=== PATIENT | female | born 2005 | race Caucasian/White ===

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

== ENCOUNTER 2024-06-27 17:54 | Emergency (ER) | payer BC, SELFPAY ==
--- OUTSIDE RECORDS SUMMARY | 2024-06-27 17:56 | XMS_ITS | Encounter Summary ---
Author Organization [facility] Address [address] [facility] [place] [address] Phone Care Team Providers Care Privacy Officer Name Role Phone Unavailable Primary Care Provider Unavailabl e Encounter Details Date Type Department Care Team (Late st Contact Info) Description 11/14/2023 Documentation [facility] Outpatient [address] [place] [phone] Candis Barfiled PA-C [address] [place] [address] Social History Tobacco Use Types Packs/Day Years Used Date Smoking Tobacco: Never Assessed Comments Unknown Sex and Gender Information Value Date Recorded Sex Assigned at Female 11/10/2023 11:33 AM EDT Legal Sex Female 8:53 AM EDT Gender Identity Not on file Sexual Orientation Not on file documented as of this encounter Plan of Treatment Not on file documented as of this encounter Visit Diagnoses Not on filedocumented in this encounter
--- OUTSIDE RECORDS SUMMARY | 2024-06-27 17:57 | XMS_ITS | Patient Health Record ---
Author Organization [facility] Address [address] [facility] [address] [place] [address] Care Team Providers Care Power Line Installer Name Role Phone Constanza Waters Unavailable [phone] Allergies No Known Allergies Reason For Referral No Information Medications Medication SIG (Take, Route, Frequency, Duration) Notes Start Date End Date Status Lo Loestrin Fe 1 MG-10 MCG / 10 MCG TAKE 1 TABLET BY MOUTH DAILY for 28 Active DULoxetine HCl 30 MG TAKE 1 CAPSULE BY M OUTH EVERY DAY Oral Once a day for 30 days Active Social History Tobacco Use: Social History Observation Description Date Details (start date - stop date) Never Smoker NA - NA Tobacco Use/Smoking Question Answer Notes Are you a nonsmoker Alcohol Screen Question Answer Notes Did you have a drink containing alcohol in the p ast year? No Points 0 Interpretation Negative Problems Problem Type SNOMED Code ICD Code Onset Dates Problem Status W/U Status Risk Notes Problem Chronic fatigue syndrome (43810593) Chronic fatigue (R53.82) Active confirmed Problem [id number] Menorrhagia with regular cycle (N92.0) Active confirmed Plan Of Treatment No Information Insurance Providers Payer Name Payer Address Payer Phone Subscriber Number Group Number Insured Name Patient Relationship to Insured Coverage Start Date Coverage End Date xx_Inde pendenc e Out of State [address] [place] [id number] Callie Wise Self - patient is the insured 2018 Medical (General) History Medical History History ICD Code depression concussion
--- OUTSIDE RECORDS SUMMARY | 2024-06-27 17:57 | XMS_ITS | Encounter Summary ---
Author Organization [facility] Address [address] [facility] [place] [address] Phone Care Team Providers Care College Archivist Name Role Phone Unavailable Primary Care Provider Unavailabl e Encounter Details Date Type Department Care Team (Late st Contact Info) Description 08/13/2023 Documentation [facility] Outpatient [address] [place] [phone] Candis Barfield PA-C [address] [place] [address] [address] Social History Tobacco Use Types Packs/Day Years [...]
--- OUTSIDE RECORDS SUMMARY | 2024-06-27 17:57 | XMS_ITS | Clinical Summary ---
Author Organization [facility] Address [address] [place] [address] Phone Care Team Providers Care Yard Supervisor Name Role Phone Unavailable Primary Care Provider Unavailabl e Allergies Active Allergy Reactions Criticality Noted Date Comments Lactose - Food Allergy Abdominal Pain 0 diarrhea Pear - Food Allergy Other (See Comments) 2023 Medications Lo Loestrin Fe 1 MG-10 MCG / 10 MCG TABS Take 1 tablet by mouth daily 01/30/2022 Active amoxicillin-cla vulanate (AUGMENTIN) 875-125 mg per tablet take 1 tablet by mouth twice daily for 10 days 12/03/2023 Active benzonatate (TESSALON) 200 MG capsule TAKE 1 CAPSULE BY MOUTH 2 TO 3 TIMES PER DAY NEEDED FOR COUGH 12/02/2023 Active amoxicillin (AMOXIL) 500 mg capsule Take 1 capsule by mouth 2 (two) times a day 02/27/2024 Active DULoxetine HCl 40 MG CPEPIndications :Generalized anxiety disorder,Major depressive disorder, recurrent episode, moderate (HCC) Take 1 capsule (40 mg total) by mouth daily 90 capsule 1 03/02/2024 5 Active Active Problems Problem Noted Date Diagnosed Date Chronic fatigue syndrome 02/24/2024 Major depressive disorder, recurrent episode, mo derate 03/01/2022 Assessment & Plan (03/02/2024 2:42 PM EST): Orders: DULoxetine HCl 40 MG CPEP; Take 1 capsule (40 mg total) by mouth daily Autism 03/01/2022 Assessment & Plan (03/02/2024 2:42 PM EST): PDD (pervasive developmental disorder), active 0 10/16/2017 Overview (02/24/2024): Diagnosed by [facility] 2017 Generalized anxiety disorder 10/12/2016 Overview (03/01/2022): Followed by [facility] 05/21/1710/2019 On Cymbalta Assessment & Plan (03/02/2024 2:42 PM EST): Orders: DULoxetine HCl 40 MG CPEP; Take 1 capsule (40 mg total) by mouth daily Refraction disorder 10/02/2015 Overview (02/24/2024): Sees an eye doctor yearly Resolved Problems Problem Noted Date Diagnosed Date Resolved Date Constipation, acute 04/05/2019 03/02/20 24 Encounters Date Type Department Care Team Description 06/07/2024 Telephone [facility] Outpatient [address] [place] [address] [facility] Appointment from Last 3 Months Social History Tobacco Use Types Packs/Day Years Used Date Smoking Tobacco: Never Smokeless Tobacco: Never Tobacco Cessation:Counseling Given: No Comments Unknown Sex and Gender Information Value Date Recorded Sex Assigned at Female 11/10/2023 11:33 AM EDT Legal Sex Female 8:53 AM EDT Gender Identity Not on file Sexual Orientation Not on file Last Filed Vital Signs Vital Sign Reading Time Taken Comments Blood Pressure 130/68 02/27/2024 2:02 PM EST Pulse 86 02/27/2024 2:02 PM EST Temperature 36.7 C (98 F) 02/27/2024 2:02 PM EST Respiratory Rate 18 02/27/2024 2:02 PM EST Oxygen Saturation 97% 02/27/2024 2:02 PM EST Inhaled Oxygen Concentration - - Weight - - Height - - Body Mass Index - - Plan of Treatment Health Maintenance Due Date Last Done Comments Hepatitis C Screening 2004 HIV Screening 06/29/2019 HPV Vaccine (1 - 3-dose series) 06/29/2019 Chlamydia Screening 2020 Meningococcal B Vaccine (2 of 2 - Bexsero SCDM 2-dose series) 05/04/2021 11/01/2020 Annual Physical 2022 BMI: Adult 2022 COVID-19 Vaccine ( - season) 2023 03/15/2021, 07/22/2020, 07/01/2020 Influenza Vaccine (#1) 2023 , 02/01/2020, 04/05/2019, Additional history exists Depression Follow-up Plan 03/02/2025 03/02/2024 Depression Screening 03/02/2025 03/02/2024 DTaP,Tdap,and Td Vaccines (7 - Td or Tdap) 10/01/2025 10/02/2015, 07/05/2009, 11/18/2005, Additional history exists Zoster Vaccine (1 of 2) 2054 HIB Vaccine Aged Out 01/11/2005, 10/09, 2004 No longer eligible based on patient's age to complete this topic Pneumococcal Vaccine: Pediatrics (0 to 5 Years) and At-Risk Patients (6 to 64 Years) Aged Out 11/18/2005, 01/11/2005, 2004, Additional history exists No longer eligible based on patient's age to complete this topic Hepatitis A Vaccine Completed 06/18/2006, IPV Vaccine Completed 07/05/2009, 06/2004, 2004, Additional history exists Meningococcal ACWY Vaccine Completed 11/01/2020, RSV Vaccine age 0-20 Months Aged Out No longer eligible based on patient's age to complete this topic Insurance [employer] [place] [facility] [place] [facility] [place] [address] [phone] [facility] * Guarantor: PAKO BAZZI Account Type Relation to Patient Date of Phone Billing Address [facility] [address] [place] [address] [facility]
--- OUTSIDE RECORDS SUMMARY | 2024-06-27 17:57 | XMS_ITS | Encounter Summary ---
Author Organization [facility] Address [address] [place] [address] Phone Care Team Providers Care Nursing Care Attendant Name Role Phone Unavailable Primary Care Provider Unavailabl e Reason for Visit * Reason Onset Date Comments Appointment 06/07/2024 Encounter Details Date Type Department Care Team (Late st Contact Info) Description 06/07/2024 Telephone [facility] Outpatient [address] [place] [phone] [address] Appointment Social History Tobacco Use Types Packs/Day Years Used Date Smoking Tobacco: Never Smokeless Tobacco: Never Comments Unknown Sex and Gender Information Value Date Recorded Sex Assigned at Female 11/10/2023 11:33 AM EDT Legal Sex Female 8:53 AM EDT Gender Identity Not on file Sexual Orientation Not on file documented as of this encounter Miscellaneous Notes * Telephone Encounter - Chandler Munson - 06/07/2024 3:26 PM EDT Rest Room Matron attempted to call client to schedule with Korina Yeh. Client's voicemail is full. Rest Room Matron sent Sazneo message instead. documented in this encounter Plan of Treatment Not on file documented as of this encounter Visit Diagnoses Not on filedocumented in this encounter Additional Health Concerns Assessment Noted Time PHQ-9 Depression Total Score: 10 03/02/ 024 2:03 PM EST documented as of this encounter
--- OUTSIDE RECORDS SUMMARY | 2024-06-27 17:57 | XMS_ITS ---
Author Organization [facility] Address [address] [facility] [address] [place] [address] Care Team Providers Care Narcotics And/Or Vice Detective Name Role Phone Constanza Waters Unavailable [phone] Allergies No Known Allergies Results Component Value Reference Range Notes B12 and Folate (Folic acid) Reviewed date:03/07/2023 08:26:55 AM Interpretation:Normal Performing Lab:[facility], [address] [place] [address], Phone - [phone], Director - MDJodry Notes/Report: Vitamin B12 688 440-5889 pg/mL Folate (Folic Acid), Serum 9.6 >3.0 ng/mL considered to represent clinical deficiency. A serum folate concentration of less than 3.1 ng/mL is CBC Reviewed date:03/07/2023 08:27:24 AM Interpretation:Normal Performing Lab:[facility], [address] [facility], Phone - [phone], Director - MDJodry Notes/Report: WBC 9.1 3.4-10.8 x10E3/uL RBC 4.51 3.77-5.28 x10E6/uL Hemoglobin 13.3 11.1-15.9 g/dL Hematocrit 41.0 34.0-46.6 % MCV 91 79-97 fL MCH 29.5 26.6-33.0 pg MCHC 32.4 31.5-35.7 g/dL RDW 12.4 11.7-15.4 % Platelets 320 150-450 x10E3/uL TSH reflex to FT4 if abnorma l Reviewed date:03/07/2023 08:27:30 AM Interpretation:Normal Performing Lab:[facility], [address] [place] [address], Phone - [phone], Director - Milka Notes/Report: TSH 1.500 0.450-4.500 uIU/mL Ferritin Reviewed date:03/07/2023 08:27:14 AM Interpretation:Normal Performing Lab:[facility], [address] [place] [address], Phone - [phone], Director - Milka Notes/Report: Ferritin 58 15-77 ng/mL Iron and Iron Binding Capaci ty Reviewed date:03/07/2023 08:27:07 AM Interpretation:Normal Performing Lab:[facility], [address] [place] [address], Phone - [phone], Director - Milka Notes/Report: Iron Bind.Cap.(TIBC) 323 250-450 ug/dL UIBC 237 131-425 ug/dL Iron 86 27-159 ug/dL Iron Saturation 27 15-55 % REASON FOR VISIT Annual Medications Medication SIG (Take, Route, Frequency, Duration) Notes Start Date End Date Status Lo Loestrin Fe 1 MG-10 MCG / 10 MCG 1 tablet Orally Once a day for 90 days Active Lo Loestrin Fe 1 MG-10 MCG / 10 MCG TAKE 1 TABLET BY MOUTH EVERY DAY for 84 Active DULoxetine HCl 30 MG TAKE 1 [...] Status Risk Notes Problem Chronic fatigue syndrome (92768233) Chronic fatigue (R53.82) Active confirmed Vital Signs Blood pressure systolic 120 mm Hg 03/04/20 23 Blood pressure diastolic 74 mm Hg 023 Height 63 in 03/04/2023 Weight 218.6 lbs 03/04/2023 BMI 38.72 kg/m2 03/04/2023 BMI Percentile 98.47 % 03/04/2023 Encounters Encounter Location Date Provider [facility] [address] [address] 03/04/2023 Constanza ShahParikh Signing Agent exam without abnormal findings Z01.419 ; Chronic fatigue R53.82 and Menorrhagia with regular cycle N92.0 Assessments Encounter Date Diagnosis (ICD Code) Assessment Notes Treatment Notes Treatment Clinical Notes Section Notes 03/04/2023 Signing Agent exam without abnormal findings (ICD-10 - Z01.419) no pap per ASCCP guidelines 03/04/2023 Chronic fatigue (ICD-10 - R53.82) 03/04/2023 Menorrhagia with regular cycle (ICD-10 - N92.0) Plan Of Treatment Medication Medication Name Sig Start Date Stop Date Notes Lo Loestrin Fe 1 MG-10 MCG / 10 MCG 1 tablet Orally Once a day for 90 days Treatment Notes Assessment Notes Signing Agent exam without abnormal findings no pa p per ASCCP guidelines Next Appt Details Follow Up: 1 Year,Ricarda wilson n: annual Progress Notes * Mazin BAZZIMary AnneOB:2005 ([age] yo F)Acc No.[id number]:03/04/2023 Progress Note Patient: Callie JOHN Provider: Amanda Waters MD :2005 A ge:17 Y S ex:Female Date:03/04/2023 Address:[address] [place] [address] [place] [phone] Subjective: * Chief Complaints: * A nnual * HPI: A nnual: c/o fatigue, desires vitamin levels checked. 17 year old female presents with c/o Annual exam T obacco Use N on-smoker D iabetes Screening I ncreased risk for diabetes R isk factors include: O besity H ypertension Screening I ncreased risk for hypertension R isk factors include: O besity M ental Health C urrently under care of a physician for mental health concerns B reast Cancer Screening P erformed M enstrual cycles n one On Lo Loestrin I ntermenstrual bleeding n o G ynecologic symptoms n one S exually active n o virgin C ontraception O CPs * ROS: G eneral/Constitutional: Patient denies c hange of weight, fever, and fatigue. ? A llergy/Immunology: Congestion d enies. C ough d enies. ? E NT: Patient denies d ifficulty swallowing. E ndocrine: Patient denies t hyroid problems. R espiratory: Patient denies s hortness of breath and respiratory symptoms. B reast: Patient denies b reast lumps, breast pain, nipple discharge. C ardiovascular: Patient denies c hest pain and dyspnea. G astrointestinal: Patient denies a bdominal pain and change in bowel habits.? H ematology: Dizziness d enies. F ever d enies. G enitourinary: Patient denies a bnormal vaginal bleeding, vaginal discharge, dyspareunia, and UTI symptoms. M usculoskeletal: Patient denies p ainful joints, muscle weakness. S kin: Patient denies n ew lesions and rash. N eurologic: Dizziness d enies. F ainting d enies. ? * Medical History: * Signing Agent History: L ast pap smear date d oes not meet age requirement. M enstruation: A ge of Onset 1 1 L MP: 1 04/30/202208/2019 T nirali between periods: > 45 days apart Once every 3 months D uration: 1 day,1 day M enses monthly N o OCP's B irth control o ral contraceptive pill. S afe Sex Practices C ondom Use n /a S exual activity C urrently sexually active N o virgin,heterosexual S exually Transmitted Infections (STIs) n one. G ardasil Vaccine G ardasil Vaccine Y es complete * OB History: P regnancy History (GPA) Total Pregnancies 0 Full Term 0 Premature 0 AB. Induced 0 AB. Spontaneous 0 AB. Elective 0 AB. Therapeutic 0 Ectopics 0 Multiple Births 0 Living 0 Vaginal Deliveries 0 C-Sections 0 * Surgical History: N o Surgical History documented. * Hospitalization/Major Diagno stic Procedure: N o Hospitalization History. * Family History: No family hx of breast, colon, or ovarian cancers. * Social History: T obacco Use: T obacco Use/Smoking A re you a n onsmoker D rugs/Alcohol: D rugs H ave you used drugs other than those for medical reasons in the past 12 months? N o Alcohol Screen D id you have a drink containing alcohol in the past year? N o P oints 0 I nterpretation N egative M iscellaneous: D iet: no dietary restrictions. Domestic violence: none. Exercise: occasional. Living with: family. Marital status: single. Occupation: in 12th grade at [employer] ([employer]) undecided.. Sexual abuse: none. Sexually active: no. Verbal abuse: none. * Medications: T akingDULoxetine HCl 30 MG Capsule Delayed Release Particles TAKE 1 CAPSULE BY MOUTH EVERY DAY Oral Once a day Lo Loestrin Fe(Norethin-Eth Estrad-Fe Biphas) 1 MG-10 MCG / 10 MCG Tablet TAKE 1 TABLET BY MOUTH EVERY DAY Medication List reviewed and reconciled with the patientTaking DULoxetine HCl 30 MG Capsule Delayed Release Particles TAKE 1 CAPSULE BY MOUTH EVERY DAY Oral Once a day Taking Lo Loestrin Fe(Norethin-Eth Estrad-Fe Biphas) 1 MG-10 MCG / 10 MCG Tablet TAKE 1 TABLET BY MOUTH EVERY DAY Medication List reviewed and reconciled with the patient * Allergies: N .K.D.A.yes[Allergies Verified] Objective: * Vitals: B P:120/74mm Hg, Ht: 63 in, Wt:218.6lbs, BMI:38.72Index, Ht-cm: 160.02, Wt-k.16, Wt %: 98.56 %, BMI %: 98.47 %, Ht %: 31.08 %. * Examination: G eneral Examination: GENERAL APPEARANCE: p leasant, well nourished, in no acute distress. EYES: n on icteric, no pallor. NECK/THYROID: n o thyromegaly or apparent thyroid nodules.? LYMPH NODES: n ormal, no palpable pelvic lymphadenopathy.? SKIN: w arm and dry. HEART: n o murmurs, regular rate and rhythm. LUNGS: n ormal respiratory effort. BREASTS: n ipples unremarkable, no axillary adenopathy, no dimpling, no lumps palpable bilaterally, no nipple discharge, no skin changes. ABDOMEN: s oft, nontender, nondistended. ? C haperone: Certified Legal Investigator Status . . G ynecological: EXAM DEFERRED TO GAME ROOM ATTENDANT: ramin sanchez. ? Assessment: * Assessment: 1. G yn exam without abnormal findings - Z01.419 (Primary) 2 . C hronic fatigue - R53.82 3 . M enorrhagia with regular cycle - N92.0 Plan: * Treatment: 2. C hronic fatigue L AB: B12 and Folate L AB: CBC L AB: Ferritin L AB: Iron and Iron Binding Capacity L AB: TSH reflex to FT4 if abnormal 3. M enorrhagia with regular cycle Refill Lo Loestrin Fe Tablet, 1 MG-10 MCG / 10 MCG, 1 tablet, Orally, Once a day, 90 days, 90 Tablet, Refills 4. * Procedure Codes: * Preventive Medicine: Counseling for Annual Visits: C ounseled On Breast Health m onthly self-examinations discussed Routine Care A COG guidelines for pap smears discussed Safe Sex c ondom use and prevention of STD discussed Nutrition c onsistent healthy diet discussed Immunizations i mmunizations status reviewed and discussed Hypertension Screening r isk factors reviewed, and patient referred appropriately Diabetes Screening r isk factors reviewed, and patient referred appropriately Notes i t is recommended that you visit a Primary Care Provider (PCP) regularly. Your PCP can help you coordinate care among your specialists, as well as make sure you are up to date with wellness exams, immunizations, and preventive screenings. If you do not have a PCP, please ask your provider for information * Follow Up: 1 Year,prn (Reason: annual) * Billing Information: * Visit Code: 42373 Est Pt Annual 18-39 yr old. * Procedure Codes: * Sign off status: Completed Visit Status: A RR (Check-In) true * Provider: Amanda Waters MD Date: 05/05/2022 Generated for Roman christie/Pravin/Jaydonitting on: 0 06/27/2024 06:56 PM EDT History and Physical Notes * HPI (History of Present Illness) Category Sub-Category Detail Notes Category Not es Annual Annual exam Tobacco Use: Non-smoker Diabetes Screening: Increased risk for d iabetes Risk factors include:: Obesity Hypertension Screening: Increased risk f or hypertension Risk factors include:: Obesity Mental Health: Currently und er care of a physician for mental health concerns Breast Cancer Screening: Performed Menstrual cycles: none On Lo Loestrin Intermenstrual bleeding: no Gynecologic symptoms: none Sexually active: no virgin Contraception: OCPs Examination Category Sub-Category Detail Notes Category Not es Gynecological EXAM DEFERRED TO GAME ROOM ATTENDANT: today General Examination GENERAL APPEARANCE: pleasant , well nourished, in no acute distress EYES: non icteric, no pall or NECK/THYROID: no thyromegaly or ap parent thyroid nodules HEART: no murmurs, regular rate and rhythm LUNGS: normal respiratory e ffort ABDOMEN: soft, nontender, non distended SKIN: warm and dry BREASTS: nipples unremarkable , no axillary adenopathy, no dimpling, no lumps palpable bilaterally, no nipple discharge, no skin changes LYMPH NODES: normal, no palpable pelvic lymphadenopathy Certified Legal Investigator Certified Legal Investigator Status .
[2024-06-27 17:59] VITALS: BP 160/110; PULSE 96; RESP 16; TEMP 36.7; O2SAT 98; BMI 32.3
--- NOTE | 2024-06-27 18:25 | ED.GENADULT ---
HPI - General Adult General Date Seen: 06/27/24 Chief complaint: Ear/Nose/Throat Problem Stated complaint: foreign body R ear Time Seen by Provider: 06/27/24 18:10 History of Present Illness HPI narrative: Patient is a 18-year-old young woman who says that the rubber gasket portion of her ear bud is stuck in her right ear. It has been there for about 45 minutes and she can not get it out. No other complaints. Related Data Home Medications ?Medication ?Instructions ?Recorded ?Confirmed duloxetine 30 mg capsule,delayed 30 mg PO DAILY 09/06/22 12/02/23 release norethindrone 1 mg-ethinyl 1 tab PO DAILY 09/06/22 12/02/23 estradiol 10 mcg (24)-iron 10 mcg(2) tablet (Lo Loestrin Fe) Previous Rx's ?Medication ?Instructions ?Recorded benzonatate 200 mg capsule 200 mg PO BID-TID PRN cough #30 12/02/23 caps Allergies Allergy/AdvReac Type Severity Reaction Status Date / Time No Known Drug Allergies Allergy Verified 12/02/23 12:07 [facility] Medical History (Updated 06/27/24 @ 18:16 by Margie Ferguson MD) Stye ?H00.019 - Hordeolum externum unspecified eye, unspecified eyelid (ICD-10) Periorbital cellulitis ?L03.213 - Periorbital cellulitis (ICD-10) Exam Narrative: Exam Narrative: Black rubber gasket visualized in the right external auditory canal Const: Vital Signs, click to edit/add: Vital Signs - 24 hr 06/27/24 17:59 Temperature 98.0 F Pulse Rate [Pulse Oximeter] 96 Respiratory Rate 16 Blood Pressure [Le ft Upper Arm] 160/110 H Pulse Oximetry 98 Oxygen Delivery Me thod Room Air Course Course ED Course: Procedure note: Alligator forceps used to remove the rubber gasket from the ear canal without complication. Tolerated well. Vital Signs Vital signs: Initial Vital Signs Temperature 98.0 F 06/27/24 17:59 Temperature Source Temporal Artery Scan 06/27/24 17:59 Pulse Rate 96 06/27/24 17:59 Pulse Rhythm Regular 06/27/24 17:59 Respiratory Rate 16 06/27/24 17:59 Blood Pressure 160/110 H 06/27/24 17:59 Blood Pressure Mean 126 H 06/27/24 17:59 Blood Pressure Position Sitting 06/27/24 17:59 Pulse Oximetry 98 06/27/24 17:59 Oxygen Delivery Method Room Air 06/27/24 17:59 Vital Signs Temperature 98.0 F 06/27/24 17:59 Pulse Rate 96 06/27/24 17:59 Respiratory Rate 16 06/27/24 17:59 Blood Pressure 160/110 H 06/27/24 17:59 Pulse Oximetry 98 06/27/24 17:59 Oxygen Delivery Method Room Air 06/27/24 17:59 Temperature 98.0 F 06/27/24 17:59 Pulse Rate 96 06/27/24 17:59 Respiratory Rate 16 06/27/24 17:59 Blood Pressure 160/110 H 06/27/24 17:59 Pulse Oximetry 98 06/27/24 17:59 Oxygen Delivery Method Room Air 06/27/24 17:59 Discharge Plan Discharge Clinical Impression: Foreign body in ear Patient Disposition: Home, Self-Care Condition: Improved Instructions: Ear Foreign Body (ED) Prescriptions: No Action Lo Loestrin Fe 1 mg-10 mcg (24)/10 mcg (2) tablet 1 tab PO DAILY duloxetine 30 mg capsule,delayed release(DR/EC) 30 mg PO DAILY benzonatate 200 mg capsule 200 mg PO BID-TID PRN (Reason: cough) Qty: 30 0RF Follow Up/Referrals: Provider,Not a Local [Primary Care Provider] - Stand Alone Forms: MyHealth Info Instructions
--- OUTSIDE RECORDS SUMMARY | 2024-06-27 18:26 | XMS_ITS | Encounter Summary ---
Author Organization [facility] Address [address] [place] [address] Phone Care Team Providers Care Svp Innovation Partnerships Name Role Phone Unavailable Primary Care Provider Unavailabl e Encounter Details Date Type Department Care Team (Late st Contact Info) Description 08/13/[address] [facility] Outpatient [address] [place] [phone] Candis Barfield PA-C [address] [place] [address] Social History Tobacco Use Types Packs/Day Years [...]
--- OUTSIDE RECORDS SUMMARY | 2024-06-27 18:26 | XMS_ITS | Encounter Summary ---
Author Organization [facility] Address [address] [place] [address] Phone Care Team Providers Care Adjustment Supervisor Name Role Phone Unavailable Primary Care Provider Unavailabl e Reason for Visit * Reason Onset Date Comments Appointment 06/07/2024 Encounter Details Date Type Department Care Team (Late st Contact Info) Description 06/07/2024 Telephone [facility] Outpatient [address] [place] [phone] [address] Appointment Social History Tobacco Use Types Packs/Day [...] Chandler Munson - 06/07/2024 3:26 PM EDT [facility] Staff attempted to call client to schedule with Korina Yeh. Client's voicemail is full. [facility] Staff sent Sara Campbell message instead. documented in this encounter Plan of Treatment Not on file documented as of this encounter Visit Diagnoses Not on filedocumented in this encounter Additional Health Concerns Assessment Noted Time PHQ-9 Depression Total Score: 10 03/02/ 024 2:03 PM EST documented as of this encounter
--- OUTSIDE RECORDS SUMMARY | 2024-06-27 18:26 | XMS_ITS | Encounter Summary ---
Author Organization [facility] Address [address] [place] [address] Phone Care Team Providers Care [employer]orer [employer] Name Role Phone Unavailable Primary Care Provider Unavailabl e Encounter Details Date Type Department Care Team (Late st Contact Info) Description 11/14/2023 Documentation [facility] Outpatient [address] [place] [phone] Candis Barfield PA-C [address] [place] [address] [address] Social History Tobacco Use Types Packs/Day Years [...]
--- OUTSIDE RECORDS SUMMARY | 2024-06-27 18:26 | XMS_ITS | Clinical Summary ---
Author Organization [facility] Address [address] [place] [address] Phone Care Team Providers Care Human Factors Specialist Name Role Phone Unavailable Primary Care Provider [...] active 0 10/16/2017 Overview (02/24/2024): Diagnosed by [facility] [place] 2017 Generalized anxiety disorder 10/12/2016 Overview (03/01/2022): Follow[facility] by [facility]/21/1710/2019 On Cymbalta Assessment & Plan (03/02/2024 2:42 PM EST): Orders: DULoxetine HCl 40 MG CPEP; Take 1 capsule (40 mg total) by mouth daily Refraction disorder 10/02/2015 Overview (02/24/2024): Sees an eye doctor yearly Resolved Problems Problem Noted Date Diagnosed Date Resolved Date Constipation, acute 04/05/2019 03/02/20 24 Encounters Date Type Department Care Team Description 06/07/2024 Telephone [facility] Outpatient [address] [place] [phone] [facility] Appointment from Last 3 Months Social History [...] to complete this topic Insurance [employer] [facility] * Guarantor: PAKO BAZZI Account Type Relation to Patient Date of Phone Billing Address [facility] [address] [place] [address] [facility] [place] [phone] [facility]
== END 2024-06-27 18:53 | disposition home or self-care (01) ==
LOC: ED 18:25
PROVIDERS: Emergency Provider Emergency Medicine
DX: S00.451A Superficial foreign body of right ear, initial encounter (principal)
CPT/HCPCS: 99282; 99283

== ENCOUNTER 2024-08-11 09:03 | Outpatient (CLI) | payer BC, SELFPAY | END 2024-08-11 09:04 | disposition home or self-care (01) | PROVIDERS: Visit Provider Family Medicine | DX: F41.9 Anxiety disorder, unspecified (principal); R53.82 Chronic fatigue, unspecified; Z79.3 Long term (current) use of hormonal contraceptives; Z13.6 Encounter for screening for cardiovascular disorders | CPT/HCPCS: 80053; 80061; 82607; 84443 ==